=== PATIENT | male | born 1970 | race African-American/Black ===

== ENCOUNTER 2017-05-05 21:48 | Emergency (ER) | payer OTHER ==
[~2017-05-05] VITALS: Ht 175.3 cm; Wt 84.4 kg
[2017-05-05 21:55] VITALS: BP 130/83
[2017-05-05] MEDS ORDERED: DIAZ5TAB PO (22:21)
[2017-05-05] MEDS ORDERED: IBUP800T19 PO (22:21)
--- NOTE | 2017-05-05 22:21 | PHYS DOC ---
Adult General Chief Complaint Chief Complaint: BACK PAIN - NO INJURY HPI HPI Patient is a 46 year old M who presents with right lower back pain. Patient states he [place] from [place] and walked out and developed some right lower back muscle spasms to the point where he had stopped and tried to stretch. Patient was able to make his car however was still significant pain therefore came the emergency room. Patient denies any radiation down the leg. Patient denies any urinary incontinence or stool contrast. Patient denies any problems starting or stopping urination. Patient denies any numbness or tingling to the inside of his legs or groin area. Upon arrival to the emergency room the patient states he is able to walk much better and is able walk in the room without any difficulty. Review of Systems Review of Systems GEN: Denies fevers, chills, sweats HEENT: Denies blurred vision, sore throat CV: Denies chest pain RESP: Denies shortness of air, cough GI: Denies n/v/d NEURO: Denies confusion, dizziness MSK: Lower back pain Physical Exam Physical Exam GEN.: No apparent distress. Alert and oriented. HEENT: Head is normocephalic, atraumatic NECK: Supple. LUNGS: CTAB. HEART: RRR, S1, S2 present. Peripheral pulses intact ABDOMEN: Soft, nontender. Positive bowel sounds. EXTREMITIES: Without any cyanosis. NEUROLOGIC: Normal speech, normal tone PSYCHIATRIC: Normal affect, normal mood. SKIN: No ulcerations BACK: Positive tenderness palpation to the right paraspinous of the lumbar region, negative straight leg test bilaterally, no saddle anesthesia, patient able stand up on his tippy toes without any difficulties, patient able to walk without any difficulties in the emergency room. EKG EKG [] Radiology/Procedures Radiology/Procedures [] Course & Med Decision Making Course & Med Decision Making Pertinent Labs and Imaging studies reviewed. (See chart for details) MDM: After reviewing the chart, CC/HPI/PMH, physical exam, I do not believe the patient sustained a significant back injury warranting further workup and/or admission at this time. Since the patient has no known traumatic injury I do not believe a CT scan, x-ray, MRI is needed at this time. I will treat the patient for muscle spasms and have him follow up his PCP for further evaluation and management. Additional verbal discharge instructions were provided to the patient and that if symptoms get worse or any new symptoms arise that are worrisome to the patient he is to return to the emergency room immediately [] Dragon Disclaimer Dragon Disclaimer This chart was dictated in whole or in part using Voice Recognition software in a busy, high-work load, and often noisy Emergency Department environment. It may contain unintended and wholly unrecognized errors or omissions. Departure Departure: Impression: Primary Impression: Muscle spasm Additional Impression: Lower back pain Disposition: HOME, SELF-CARE Condition: IMPROVED Patient Instructions: Back Exercises, Back Pain in Additional Instructions: Please follow up with her family doctor next one to 2 days Scripts Diazepam (VALIUM) 5 Mg Tablet 5 MG PO TID for 5 Days, #15 TAB Prov: KIMBERLY LOMAX DO 05/05/17 Ibuprofen (IBUPROFEN) 800 Mg Tablet 1 TAB PO TID, #30 TAB Prov: KIMBERLY LOMAX DO 05/05/17 Problem Qualifiers Additional Impression: Lower back pain Chronicity: acute Back pain laterality: right Sciatica presence: without sciatica Qualified Codes: M54.5 - Low back pain KIMBERLY LOMAX DO May 05, 2017 22:21
[2017-05-05] MEDS ORDERED: KETOROLAC 60 MG/2 ML VIAL. IM ONE (22:30)
== END 2017-05-05 22:55 | disposition home or self-care (01) ==
LOC: ER 21:48
DX: M54.5 Low back pain (principal); M62.838 Other muscle spasm
CPT/HCPCS: 96372; 99283; J1885

== ENCOUNTER 2018-02-19 12:58 | Emergency (ER) | payer OTHER ==
[~2018-02-19] VITALS: Ht 175.3 cm; Wt 82.6 kg
[~2018-02-19 12:58] MED LIST: DIAZ5TAB PO; IBUP800T19 PO
--- NOTE | 2018-02-19 14:04 | PHYS DOC ---
Past History Past Medical History: No Pertinent History, Hypertension, Other Past Surgical History: Other Alcohol Use: None Drug Use: None Adult General Chief Complaint Chief Complaint: LOWEREXTREMITY INJURY HPI HPI Patient is a 47-year-old male presents with right hamstring pain. 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 Patient had already strained his hamstring a couple of weeks ago and was told to limit his running by his PCP. The patient did not believe that he was overly exerting himself until he felt pain. The patient has no other complaints. He is otherwise healthy. Review of Systems Review of Systems Constitutional: Denies fever or chills [] Eyes: Denies change in visual acuity, redness, or eye pain [] HENT: Denies nasal congestion or sore throat [] Respiratory: Denies cough or shortness of breath [] Cardiovascular: No additional information not addressed in HPI [] GI: Denies abdominal pain, nausea, vomiting, bloody stools or diarrhea [] : Denies dysuria or hematuria [] Musculoskeletal: Right Hamstring pain[] Integument: Denies rash or skin lesions [] Neurologic: Denies headache, focal weakness or sensory changes [] Endocrine: Denies polyuria or polydipsia [] All other systems were reviewed and found to be within normal limits, except as documented in this note. Allergies Allergies Allergies Coded Allergies Type Severity Reaction Last Updated Verified primaquine Allergy Severe 05/05/17 Yes aspirin Allergy Intermediate 05/05/17 Yes Physical Exam Physical Exam Constitutional: Well developed, well nourished, no acute distress, non-toxic appearance. [] HENT: Normocephalic, atraumatic, bilateral external ears normal, oropharynx moist, no oral exudates, nose normal. [] Eyes: PERRLA, EOMI, conjunctiva normal, no discharge. [] Neck: Normal range of motion, no tenderness, supple, no stridor. [] Cardiovascular:Heart rate regular rhythm, no murmur [] Lungs & Thorax: Bilateral breath sounds clear to auscultation [] Abdomen: Bowel sounds normal, soft, no tenderness, no masses, no pulsatile masses. [] Skin: Warm, dry, no erythema, no rash. [] Back: No tenderness, no CVA tenderness. [] Extremities: Tenderness over the medial right hamstring over the semitendinosis [] Neurologic: Alert and oriented X 3, normal motor function, normal sensory function, no focal deficits noted. [] Psychologic: Affect normal, judgement normal, mood normal. [] Current Patient Data Vital Signs Vital Signs Date Time Temp Pulse Resp B/P (MAP) Pulse Ox O2 Delivery O2 Flow Rate FiO2 02/19/18 13:05 97.7 75 16 99 Room Air EKG EKG [] Radiology/Procedures Radiology/Procedures [] Course & Med Decision Making Course & Med Decision Making Pertinent Labs and Imaging studies reviewed. (See chart for details) The patient has further exacerbated the strain in his right hamstring. It is not a complete tear. The patient's pain is 3 out of 10. He is able to walk with a slight limp. Advised for the rest and to follow-up with his PCP to determine duration of rest and physical therapy. [] Dragon Disclaimer Dragon Disclaimer This electronic medical record was generated, in whole or in part, using a voice recognition dictation system. Departure Departure: Referrals: CANDIDA MARTINEZ DO (PCP) TATO VERDUZCO DO February 19, 2018 14:04
[2018-02-19 14:06] VITALS: BP 143/76
== END 2018-02-19 14:16 | disposition home or self-care (01) ==
LOC: ER 12:58
DX: S76.811A Strain of other specified muscles, fascia and tendons at thigh level, right thigh, initial encounter (principal); I10 Essential (primary) hypertension; Z88.8 Allergy status to other drugs, medicaments and biological substances; X58.XXXA Exposure to other specified factors, initial encounter; Y93.89 Activity, other specified; Y99.8 Other external cause status; Y92.89 Other specified places as the place of occurrence of the external cause
CPT/HCPCS: 99281